=== PATIENT | female | born 1995 | race Native Hawaiian/Other Pacific Islander ===

== ENCOUNTER 2022-04-30 08:20 | Emergency (ER) | payer MEDICAID ==
[~2022-04-30] VITALS: Ht 154.9 cm; Wt 106.8 kg
[2022-04-30 08:29] VITALS: BP 159/91
[2022-04-30] MEDS ORDERED: METH4TAB3 PO (09:48)
[2022-04-30] MEDS ORDERED: ALBU8.5H17 IH (09:48)
[2022-04-30] MEDS ORDERED: BENZ-38 PO (09:48)
[2022-04-30] MEDS ORDERED: benzonatate 100mg capsule PO ONE (09:55)
== END 2022-04-30 10:12 | disposition home or self-care (01) ==
LOC: ER 08:20
DX: J20.8 Acute bronchitis due to other specified organisms (principal); Z20.822 Contact with and (suspected) exposure to COVID-19
CPT/HCPCS: 87081; 87635; 87880; 99283; C9803